=== PATIENT | female | born 2000 | race Two or more races ===

== ENCOUNTER 2022-10-11 13:47 | Emergency (ER) | payer OTHER ==
[~2022-10-11] VITALS: Ht 152.4 cm; Wt 54.4 kg
--- NOTE | 2022-10-11 13:50 | NUR ---
CALLED TO TRIAGE,NO ANSWER
[2022-10-11 14:07] VITALS: BP 112/87
[2022-10-11] MEDS ORDERED: DEXAMETHASONE SOD PHOSPHATE 10 MG/ML VIAL MC STA (14:43)
[2022-10-11] MEDS ORDERED: PRED20TA PO (14:50)
[2022-10-11] MEDS ORDERED: KETO10TA2 PO (14:50)
[2022-10-11] MEDS ORDERED: DEXAMETHASONE SOD PHOSPHATE 10 MG/ML VIAL ONE (14:56)
[2022-10-11] MEDS ORDERED: KETOROLAC TROMETHAMINE INJ 30 MG/ML VIAL ONE (14:57)
[2022-10-11] MEDS ORDERED: PENICILLIN G BENZATHINE 2.4 MMU/4 ML ML IM ONE ×2 (14:57→15:00)
[2022-10-11] MEDS ORDERED: KETOROLAC TROMETHAMINE INJ 60 MG/2 ML VIAL IM ONE (15:00)
--- NOTE | 2022-10-11 16:14 | NUR ---
Patient discharged to home in stable condition. Written and verbal after care instructions given. Patient verbalizes understanding of instruction.
== END 2022-10-11 16:14 | disposition home or self-care (01) ==
LOC: ER 14:01
DX: J02.9 Acute pharyngitis, unspecified (principal); Z88.2 Allergy status to sulfonamides; Z88.8 Allergy status to other drugs, medicaments and biological substances; Z79.899 Other long term (current) drug therapy
CPT/HCPCS: 99284; 96372 ×2; 84703; J0558; J1100; J1885

== ENCOUNTER 2022-10-17 14:52 | Emergency (ER) | payer OTHER ==
[~2022-10-17] VITALS: Ht 152.4 cm; Wt 52.2 kg
[~2022-10-17 14:52] MED LIST: KETO10TA2 PO; PRED20TA PO
[2022-10-17 15:08] VITALS: BP 126/80
[2022-10-17] MEDS ORDERED: IBUPROFEN 600 MG TABLET ONE (16:28)
[2022-10-17] MEDS ORDERED: ACETAMINOPHEN ES 500 MG TABLET ONE (16:28)
[2022-10-17] MEDS: ACETAMINOPHEN ES 500 MG TABLET PO ONE (16:31)
[2022-10-17] MEDS: IBUPROFEN 600 MG TABLET PO ONE (16:31)
--- NOTE | 2022-10-17 17:30 | NUR ---
Updated with plan of care. NO obvious distress- No acute changes
[2022-10-17 17:35] LABS: MONOTEST NEGATIVE (NEGATIVE)
[2022-10-17] MEDS ORDERED: IBUP-1953 PO (18:30)
[2022-10-17] MEDS ORDERED: CLIN300C12 PO (18:30)
--- NOTE | 2022-10-17 18:31 | NUR ---
Patient discharged to home in stable condition. Written and verbal after care instructions given. Patient verbalizes understanding of instruction.
--- NOTE | 2022-10-17 18:53 | NUR ---
Patient discharged to home in stable condition. Written and verbal after care instructions given. Patient verbalizes understanding of instruction.
== END 2022-10-17 18:53 | disposition home or self-care (01) ==
LOC: ER 14:58
DX: J02.8 Acute pharyngitis due to other specified organisms (principal); Z88.2 Allergy status to sulfonamides; Z88.8 Allergy status to other drugs, medicaments and biological substances; Z79.899 Other long term (current) drug therapy
CPT/HCPCS: 36415; 86308-TC; 86403-TC; 87070-TC